=== PATIENT | female | born 1975 | race Caucasian/White ===

== ENCOUNTER 2018-05-08 08:19 | Day surgery (SDC) | payer OTHER, SELFPAY ==
[2018-05-07 12:25] VITALS: BMI 40.6
[2018-05-08 08:32] VITALS: BP 134/84; PULSE 73; RESP 15; TEMP 36.1; O2SAT 99; BMI 40.6
[2018-05-08] MEDS: LACTATED RINGERS 1,000 ML 100 ML IV (08:46)
--- NOTE | 2018-05-08 08:54 | SUR.PREOP ---
per dr. wallace urine test ok to do not serum
--- NOTE | 2018-05-08 09:24 | P.HP_ITS ---
History of Present Illness Date Patient Seen: 05/08/18 Time Patient Seen: 09:19 Chief complaint: [id number] Narrative: 43-year-old female with history of right breast cancer status post lumpectomy and axillary dissection now completed with adjuvant chemotherapy. She had a port inserted in the left subclavian position for chemotherapy. She completed her chemotherapy within the last 1-2 weeks. She presents now for port removal. She desires the device to be removed as soon as possible. Port function well throughout her chemotherapy sessions. No bleeding or other complications related to the device. She denies any pain at the area. Patient History Medical History Breast cancer, right (Acute) Port-A-Cath in place (Acute) Shingles (Acute) Surgical History History of lumpectomy of right breast (Acute) Hx of lymph node biopsy (Acute) History of third molar tooth extraction Status post tubal ligation Family & Social History Family History: Reviewed 05/08/18 by Duane Green MD Social History: household members spouse,children Tobacco & Substance use: Smoking Status Never smoker alcohol intake never Substance Use Type does not use Meds Home Medications Medication Instructions Recorded Confirmed Type multivitamin [Multiple Vitamins] #0 10/24/17 History oxycodone 5 mg PO Q4HP PRN #30 tab 11/06/17 05/08/18 Rx Allergies Allergy/AdvReac Type Severity Reaction Status Date / Time codeine [CODEINE] Allergy Unknown HIVES Verified 05/08/18 08:31 Review of Systems Review of Systems All systems reviewed & are unremarkable except as noted in HPI and below Exam Vital Signs (past 8 hours): Vital Signs - 8 hr 3 05/08/18 08:32 Temperature 96.9 F L Pulse Rate 73 Respiratory Rate 15 Blood Pressure 134/84 H Pulse Oximetry 99 Pulse Oximetry 99 Oxygen Delivery Method Room Air Narrative Exam Narrative: Well-nourished well-developed female in no acute distress. Alert oriented x3. Her accompanies her at the bedside during my exam. She has alopecia related to recent chemotherapy Neck is supple Chest clear to auscultation. Regular rate and rhythm. Left subclavian port device is well healed and in good position Abdomen soft, nondistended, nontender Breast examination is deferred today. She is scheduled to see me in the next few weeks for full oncologic follow-up for this issue. Extremities show no clubbing, cyanosis, or edema Objective Labs Labs: She has no laboratory studies available for my review at this time Assessment & Plan Plan: Assessment/Plan Narrative: 43-year-old female now status post chemotherapy for right breast cancer. She no longer requires her port device. She wishes to have this removed. I had a lengthy discussion with her and her regarding removal device at this early stage after chemotherapy. At this point she has not been completely cleared with no evidence of disease. She understands she may require further treatment in the future which would potentially necessitate replacement of the central venous device for long-term IV access. Technical details of the procedure were also explained. Risks, benefits, alternatives including the option of leaving the device in place for some further period of time were explained in detail. Risks including but not limited to anesthesia, bleeding, infection, pain, numbness, scar, hematoma, seroma, incomplete removal of the catheter, distal embolization, need for further major interventional radiology procedures or even thoracotomy were discussed. She understands that she would require urgent transfer to another facility for such services. All questions were answered to her satisfaction, and she voiced understanding. Consent was placed on the chart. We will proceed today as above per her wishes.
--- NOTE | 2018-05-08 09:24 | PM.PREOP ---
Pre-operative Note Interval Note Pre-op Check: History & Physical Reviewed by Physician, Exam Performed and History & Physical exam performed today H&P completed within 30 days and has changed as indicated here:: Patient seen and examined today. History and physical examination document on the chart. Patient marked for surgery. Proceed with port removal as planned today. Consent on chart.
[2018-05-08] MEDS: CEFAZOLIN 2 GM/100 ML FROZ.PIGGY IV (09:28)
[2018-05-08] MEDS: LIDOCAINE 1% W/EPI INJ 30 ML INJ (09:43)
--- NOTE | 2018-05-08 09:45 | SUR.OPER ---
Supine on padded OR bed, head on pillow, left arm padded and tucked at side, right arm secured on padded armboard, legs uncrossed, safety belt at thigh, tape over blanket over lower legs .
[2018-05-08 10:05] VITALS: BP 113/67; PULSE 94; RESP 16; TEMP 36.6; O2SAT 98
--- NOTE | 2018-05-08 10:08 | PM.OP.1 ---
Operative Date/Time/Diagnoses - Date of procedure: 05/08/18 Time of procedure: 10:08 Pre-op diagnosis: Existing Port-A-Cath device Post-op diagnosis: same Procedure & Clinicians Procedure: Removal of tunneled left subclavian vein central venous port device Same procedure as scheduled: Yes Indications: 43-year-old female status post adjuvant chemotherapy for right breast cancer metastatic to axillary lymph nodes who has recently completed her therapy. She required long-term IV access for chemotherapy. A port was inserted at that time. She requests currently that the port device be removed. Surgeon: Duane Green Click Yes if Unassisted: Yes Anesthesia Type: MAC +/- Operative Notes Findings: 1. Intact slim profile 9 [place] port device with catheter attached Closure Type: primary Specimen(s): none sent Implants & Drains: None Estimated Blood Loss (mL): 5 Procedure in detail: Patient brought to the operating room placed supine on the table. After satisfactory induction of anesthesia a SCOAP time-out was performed per standard protocol. A total 20 cc of local anesthesia consisting 1% lidocaine with 1 100,000 epinephrine was injected in the skin and subcutaneous tissue around the port device for postoperative analgesia. The 15 scalpel blade was used to create the incision over the existing scar. Sharp dissection with Metzenbaum scissors was employed as she to liberate the device from surrounding connective tissue and scar. The device was then secured with tooth forceps and elevated into the operative field. Entire catheter was removed intact as above. Hemostasis was achieved with the Bovie. Wound was irrigated with copious amounts of sterile saline solution. Hemostasis was verified and the skin was closed with interrupted 2 0 nylon sutures in a vertical mattress fashion. Sterile dressing was applied. Anesthesia was reversed and patient taken to the same-day surgery area in stable condition. Complications: none Condition: stable Disposition: same day surgery Plan for aftercare: 1. Discharged home 2. Follow up in 8 days for suture removal
--- NOTE | 2018-05-08 10:12 | P.OP_ITS ---
Operative Date/Time/Diagnoses - Date of procedure: 05/08/18 Time of procedure: 10:08 Pre-op diagnosis: Existing Port-A-Cath device Post-op diagnosis: same Procedure & Clinicians Procedure: Removal of tunneled left subclavian vein central venous port device Same procedure as scheduled: Yes Indications: 43-year-old female status post adjuvant chemotherapy for right breast cancer metastatic to axillary lymph nodes who has recently completed her therapy. She required long-term IV access for chemotherapy. A port was inserted at that time. She requests currently that the port device be removed. Surgeon: Duane Green Click Yes if Unassisted: Yes Anesthesia Type: MAC +/- Operative Notes Findings: 1. Intact slim profile 9 [place] port device with catheter attached Closure Type: primary Specimen(s): none sent Implants & Drains: None Estimated Blood Loss (mL): 5 Procedure in detail: Patient brought to the operating room placed supine on the table. After satisfactory induction of anesthesia a SCOAP time-out was performed per standard protocol. A total 20 cc of local anesthesia consisting 1 % lidocaine with 1 100,000 epinephrine was injected in the skin and subcutaneous tissue around the port device for postoperative analgesia. The 15 scalpel blade was used to create the incision over the existing scar. Sharp dissection with Metzenbaum scissors was employed as she to liberate the device from surrounding connective tissue and scar. The device was then secured with tooth forceps and elevated into the operative field. Entire catheter was removed intact as above. Hemostasis was achieved with the Bovie. Wound was irrigated with copious amounts of sterile saline solution. Hemostasis was verified and the skin was closed with interrupted 2 0 nylon sutures in a vertical mattress fashion. Sterile dressing was applied. Anesthesia was reversed and patient taken to the same-day surgery area in stable condition. Complications: none Condition: stable Disposition: same day surgery Plan for aftercare: 1. Discharged home 2. Follow up in 8 days for suture removal
[2018-05-08 10:14] VITALS: BP 117/76; PULSE 84; RESP 16; TEMP 36.3; O2SAT 98
--- NOTE | 2018-05-08 10:34 | SUR.PHASEI ---
patient bypassed PACU per anesthesia. PACU assessment completed for wound assessment/post op interventions.
== END 2018-05-08 10:25 | disposition home or self-care (01) ==
PROVIDERS: PCP Family Medicine; Visit Provider Surgery
PROC: (CPT 36590; principal; 2018-05-08 09:15)
DX: Z45.2 Encounter for adjustment and management of vascular access device (principal); Z85.3 Personal history of malignant neoplasm of breast
CPT/HCPCS: 36590; J0690; J2250; J2704; J3010